=== PATIENT | female | born 1975 | race Caucasian/White ===

== ENCOUNTER 2023-04-22 10:47 | Day surgery (SDC) | payer BC ==
[2023-04-19 10:58] VITALS: BMI 24.7
[2023-04-22 12:01] VITALS: PULSE 70; RESP 16; TEMP 97.4
[2023-04-22 12:03] VITALS: BP 105/69
== END 2023-04-22 12:11 | disposition home or self-care (01) ==
LOC: FASU-ENDO 10:47
PROVIDERS: ATTEND Internal Medicine Gastroenterology
PROC: 0DJD8ZZ Inspection of Lower Intestinal Tract, Via Natural or Artificial Opening Endoscopic (ICD-10-PCS; principal; 2023-04-22 11:19)
DX: Z12.11 Encounter for screening for malignant neoplasm of colon (principal)